=== PATIENT | male | born 1960 | race Caucasian/White ===

== ENCOUNTER 2022-03-25 06:53 | Day surgery (SDC) | payer OTHER ==
[~2022-03-25] VITALS: Ht 170.2 cm; Wt 88.8 kg
[2022-03-25] VITALS (9 sets, daily range): BP systolic 81–148; BP diastolic 48–87
--- NOTE | 2022-03-25 06:48 | NUR ---
Patient arrived to the [facility] suite, identification and demographics confirmed. Patient to room 10, AAO, ambulatory, vitals obtained, ID/allergy/fall bands placed, changed into hospital gown, NOEMI hose, and non-slip socks. Procedure and timeline explained for treatment and discharge. All questions answered and the patient presents no concerns at this time.
--- NOTE | 2022-03-25 07:16 | NUR ---
Dr. Franks telephoned with patient intake information including usage, dose, last dose/time taken and initial vital signs. Patient history and allergies reviewed with MD. Orders received for 10 mg PO Valium and 0.3 mg PO Clonidine now. Will reassess per protocol in 1.5 hours and update MD with assessment and vitals.
[2022-03-25 07:28] LABS: HEMATOCRIT 48.5 % (39.0-50.0); HEMOGLOBIN 15.1 g/dl (14.0-18.0); IMMATURE GRANULOCYTES 0.2 % (0.0-5.0); MEAN CELL VOLUME 79.4 fL CALC (80.0-100.0); MEAN CORPUSCULAR HGB 24.7 pG CALC (26.0-32.0); MEAN CORPUSCULAR HGB CONC 31.1 g/dL CAL (32.0-36.0); NEUT# 6.46 thou/uL (1.82-7.42); RED BLOOD COUNT 6.11 mill/uL (4.70-6.10); RED CELL DISTRI WIDTH 17.2 % (11.5-15.5)
[2022-03-25 07:42] LABS: ALBUMIN 4.8 g/dL (3.2-5.0); ALKALINE PHOSPHATASE 48 u/l (38-126); ANION GAP 18 (6-22 (CALC)); BILIRUBIN, TOTAL 0.7 mg/dL (0.0-1.4); BUN 17 mg/dL (9-20); BUN/CREATININE RATIO 16 (12-20 (CALC)); CARBON DIOXIDE 27 mmol/l (22-30); CHLORIDE 100 mmol/l (95-108); CREATININE 1.1 mg/dL (0.7-1.3); GFR FOR AFR.AMER. > 60 ML/MIN (>=60 (CALC)); GFR OTHER RACES > 60 ML/MIN (>=60 (CALC)); SGOT/AST 55 u/l (17-59); SODIUM 140 mmol/l (137-146); TOTAL PROTEIN 8.1 g/dL (6.3-8.2)
--- NOTE | 2022-03-25 08:00 | NUR ---
Patient resting comfortably in bed. Easily aroused, maintains focus, and drifts back to sleep. No signs of active withdrawal or distress noted at this time. Continuous SPO2 initiated. IVF @ 250 mL/HR, room air, VSS.
[2022-03-25] MEDS ORDERED: LISINOPRIL10 MG PO (08:05)
[2022-03-25] MEDS ORDERED: LEVOTHYROXIN125 MCG PO (08:06)
--- NOTE | 2022-03-25 08:30 | NUR ---
Patient resting comfortably in bed. Easily aroused, maintains focus, and drifts back to sleep. No signs of active withdrawal or distress noted at this time. Patient placed on 2L NC for desaturations to 83% while sleeping. Snoring noted along with brief periods of apnea. No report of DIANA from patient. Will update MD with repeat assessment and vital signs.
--- NOTE | 2022-03-25 09:40 | NUR ---
Dr. Franks telephoned with reassessment and new vital signs. Reviewed initial Valium and Clonidine dose with MD. Orders received for NO PO Valium and NO mg PO Clonidine. Orders for bolus given for 81/49 BP. Will reassess per protocol in 1.5 hours and update MD with assessment and vitals.
--- NOTE | 2022-03-25 10:00 | NUR ---
Patient noted to be diaphoretic, difficult to arouse, and hypotensive. MD notified immediately by DEANGELO Hameed. Patient placed in the supine position with legs elevated, IVF increased to bolus 1L, patient stimulated to arousal and maintained focus, AAOx4. Fingerstick glucose 85, serum glucose on morning labs 105. No changes at this time to IVF, orders given to administer 25 mg Ephedrine IM ONCE.
--- NOTE | 2022-03-25 10:11 | NUR ---
PT NOTED TO HAVE BP 65/34, HR 57, WARM AND CLAMMY TO TOUCH. ROUSED PT WITH VERBAL AND TACTILE STIMULATION. RESPONSIVE. DR NEWSOME NOTIFIED BY PHONE AND N/O FOR EPHEDRINE 25MG/IM NOW. BS 84. CONTINUES WITH IV NS BOLUS.
--- NOTE | 2022-03-25 10:16 | NUR ---
Ephedrine 25 mg IM ONCE administered, patient remains in leg raised position. BP responsive to treatement and nursing interventions. See chart for repeat vital signs.
--- NOTE | 2022-03-25 12:34 | NUR ---
Breathing treatment and Protonix adminstered at this time per Dr. Franks.
--- NOTE | 2022-03-25 12:50 | NUR ---
Induction Note Patient to [facility] procedure room. Time out performed at 1250. Patient placed on monitors, Kj hugger, bilateral wrist restraints applied for ET tube protection. Versed 5mg given IV push at 1251 Tourniquet applied to RIGHT arm Lidocaine 100mg given at 1252 IV push followed by Rocoronium 10mg at 1252 IV push and held for 45 seconds. Propofol bolus of 120 mg given at 1254 IV push. Succinylcholine 80mg given IV push at 1255. Smooth intubation with 7.5 ETT @ 21 lip. Positive CO2. Positive Auscultation for air exchange. Patient placed on ventilator for spontaneous ventilation. Placed on Propofol IV drip at 1256. OG inserted. Positive air on auscultation. Positive gastric content. Stomach washed at this time.
--- NOTE | 2022-03-25 13:05 | NUR ---
OG close note Stomach washed at this time. Naltrexone 50 mg with Clonidine ZERO mg via OG tube. OG will be clamped for 45 minutes.
--- NOTE | 2022-03-25 13:50 | NUR ---
OG open note OG open at this time. Gastric content draining into drainage bag. OG to drain for 45 minutes. Propofol will be titrated down based on patient.
--- NOTE | 2022-03-25 14:35 | NUR ---
OG close note Stomach washed at this time. Naltrexone 50 mg with Clonidine 0.1 mg via OG tube. OG will be clamped for 45 minutes.
--- NOTE | 2022-03-25 16:28 | NUR ---
OG close note Stomach washed at this time. Naltrexone 25 mg with Clonidine 0.2 mg via OG tube. OG will be clamped for 45 minutes.
[2022-03-25] MEDS ORDERED: KLONOPIN2 MG PO (17:26)
[2022-03-25] MEDS ORDERED: NALTREXONE50 MG PO (17:26)
[2022-03-25] MEDS ORDERED: CLONIDINE0.1 MG PO (17:26)
--- NOTE | 2022-03-25 17:53 | NUR ---
No OG close at this time. Patient minimally reacting to treatment at this time. Vitals, total Naltrexone & Clonidine, current Propofol infusion rate, treatment duration, and patient assessment discussed with Dr. Franks. No orders for medication administration at this time. Instructed to observe patient until 1800, if no further reactions noted, proceed to closing medications.
--- NOTE | 2022-03-25 18:11 | NUR ---
OG close note (CLOSING DOSE) Stomach washed at this time. Naltrexone ZERO mg with Clonidine 0.1 mg via OG tube. OG will be clamped for 30 minutes.
--- NOTE | 2022-03-25 18:48 | NUR ---
Extubation note Closing medications given Benadryl 50mg IV push, Decadron 10mg IV push,Magnesium 4 grams IV, Zofran 8mg IV push, Octreotide 100mcg SC. Stomach washed out prior to extubation. Suctioned gastric content. OG removed. Patient extubated. Propofol Discontinued. Wrist restraints removed. Kj hugger Removed. See [facility] Moderate sedate recovery record for further notes and assessment.
--- NOTE | 2022-03-25 18:55 | NUR ---
Patient with oral airway at this time. Respirations are 22-26, even and unlabored on 2L via NC. No adventitious breath sounds appreciated anteriorly or posteriorly. Upper airway free from stridor or wheeze.
--- NOTE | 2022-03-25 19:35 | NUR ---
Oral airway remains in place at this time. Patient beginning to arouse. Transfer to medical floor.
--- NOTE | 2022-03-25 19:50 | NUR ---
Patient to room 291 in no acute distress. Transfer of care to Med-automatic gluing machine operatorDEANGELO Shelton at bedside. 2L NC in place per orders, IVF to continue at 100ml/hr. VSS: 98.3, 80, 22RR,108/66, 98% 2L NC. Oral airway removed at bedside. Lungs auscultated and clear bilaterally, patient encouraged to cough. Patient resting comfortably, no adventitious breath sounds appreciated. Bed alarm set. See chart/EMAR for procedural details and assessments. Handoff of care at the time of this note.
--- NOTE | 2022-03-25 20:17 | NUR ---
PATIENT RESTING IN BED WITH EYES CLOSED. NO SIGNS OF DISTRESS. BED REMAINS IN LOW POSITION. BED ALARM ACTIVE.
--- NOTE | 2022-03-25 23:30 | NUR ---
PATIENT RESTING IN RECLINER IN ROOM. EYES CLOSED. NO SIGNS OF DISTRESS. SYSTEMS AUDITOR NEAR PATIENT. CALL LIGHT IN REACH.
[2022-03-26 04:06] VITALS: BP 156/91
--- NOTE | 2022-03-26 04:15 | NUR ---
PATIENT REMAINS NON COMPLIANT. CONSTANTLY TRYING TO SIT UP AND GET OUT OF BED. REDIRECTED NUMEROUS TIMES. POSITION CHANGES MADE TO PATIENT. BED REMAINS IN LOW POSITION. BED ALARM ACTIVE.
[2022-03-26 06:25] LABS: HEMOGLOBIN 13.5 g/dl (14.0-18.0); IMMATURE GRANULOCYTES 0.4 % (0.0-5.0); MEAN CELL VOLUME 78.6 fL CALC (80.0-100.0); MEAN CORPUSCULAR HGB CONC 31.8 g/dL CAL (32.0-36.0); NEUT# 8.82 thou/uL (1.82-7.42); RED BLOOD COUNT 5.41 mill/uL (4.70-6.10); RED CELL DISTRI WIDTH 16.8 % (11.5-15.5)
[2022-03-26 06:32] LABS: HEMATOCRIT 42.5 % (39.0-50.0)
[2022-03-26 06:33] LABS: ALBUMIN 4.2 g/dL (3.2-5.0); ALKALINE PHOSPHATASE 40 u/l (38-126); ANION GAP 16 (6-22 (CALC)); BILIRUBIN, TOTAL 0.8 mg/dL (0.0-1.4); BUN 25 mg/dL (9-20); BUN/CREATININE RATIO 20 (12-20 (CALC)); CARBON DIOXIDE 25 mmol/l (22-30); CHLORIDE 102 mmol/l (95-108); CREATININE 1.3 mg/dL (0.7-1.3); GFR FOR AFR.AMER. > 60 ML/MIN (>=60 (CALC)); GFR OTHER RACES 56 ML/MIN (>=60 (CALC)); MAGNESIUM 2.2 mg/dL (1.6-2.3); POTASSIUM 4.9 mmol/l (3.5-5.1); SGOT/AST 54 u/l (17-59); SODIUM 138 mmol/l (137-146)
--- NOTE | 2022-03-26 07:00 | NUR ---
RECEIVE REPORT FROM [facility].
--- NOTE | 2022-03-26 07:06 | NUR ---
PT RESTING IN HIGHFOWLERS POSITION. PT A/OX3 ASSESSMENT COMPLETED. VS TO BE COLLECTED. HEART RHYTHM NORMAL RESPIRATIONS UNLABORED. IV SITE NOTED BOWEL SOUNDS ACTIVE. PT UNSTEADY X2 PERSON ASSIST. PT DENIES ADDITIONAL NEEDS AT THE TIME ALL SAFETY PRECAUTIONS IN PLACE CALL LIGHT IN REACH.
--- NOTE | 2022-03-26 08:00 | NUR ---
Patient to alert and oriented x3. No acute distress. 2L NC in place. Lungs clear bilaterally. Patient resting in bed pleasant at this time. Bed alarm on. Assessmente head-to toe is done. Safety and fall precautions in place. Sitter at bed side.
[2022-03-26 08:10] VITALS: BP 156/91
--- NOTE | 2022-03-26 12:00 | NUR ---
PATIENT RESTING IN BED. NO SIGNS OF DISTRESS NOTED. NO SIGNS OF PAIN. BED IN LOW POSITION. BED ALARM ACTIVE. SAFETY AND FALL PRECAUTION IN PLACE. SAFETY AND FALL PRECAUTIONS IN PLACE.
== END 2022-03-26 13:26 | disposition home or self-care (01) | DRG 897 ==
LOC: ANR 06:53 → ANR-I 06:54 → ANR 08:00 → MS2 18:30 → ANR 03-26 13:26
PROVIDERS: ATTEND Anesthesiology
DX: F11.20 Opioid dependence, uncomplicated (principal)
CPT/HCPCS: J2354